=== PATIENT | female | born 1950 | race African-American/Black ===

== ENCOUNTER 2016-05-05 18:04 | Day surgery (SDC) | payer BC ==
--- NOTE | ~2016-05-05 | OP ---
Record Of Operation [facility] [address] [place]. [address] NAME: WU LEROY : 48 STATUS : [facility]#: [id number] AGE: 66 ADM/REG DATE : 05/05/16 MR#: [id number] REPORT SERV DATE: 05/09/16 DICTATED BY: JT GALLEGO DATE: 05/09/16 REPORT STATUS : Draft TRANSCRIBED BY: MODKyaw DATE: 05/09/16 DATE OF PROCEDURE: 05/05/2016 PREOPERATIVE DIAGNOSES: 1. End-stage renal disease. 2. Thrombosed left upper extremity arteriovenous fistula. POSTOPERATIVE DIAGNOSES: 1. End-stage renal disease. 2. Thrombosed left upper extremity arteriovenous fistula. PROCEDURE: 1. Open thrombectomy left upper extremity arteriovenous fistula. 2. AV fistulogram. 3. Open angioplasty of the venous outflow. 4. Revision of the arteriovenous anastomoses with patch angioplasty. SURGEON: Jt Gallego M.D. ELECTRICAL PROSPECTOR: Lonnie. ANESTHESIA: Local with MAC. ESTIMATED BLOOD LOSS: 200 mL. COMPLICATIONS: None. SPECIMEN: Thrombus. INDICATION: Ms. Leroy is a pleasant 66-year-old female with end-stage renal disease on hemodialysis. She dialyzes through a left upper extremity brachiobasilic arteriovenous fistula. This is occluded. She is brought for thrombectomy and intervention as needed. DETAILS OF PROCEDURE: After informed consent was obtained, the patient brought to the endovascular suite, placed in supine position. After administration of IV sedation, she was prepped and draped in the usual sterile fashion. A time-out was performed. I commenced the procedure with ultrasound examination of the fistula. It is indeed thrombosed. Identified the arteriovenous anastomoses. I anesthetized the skin just cephalad to that, and made an incision and dissected down through subcutaneous tissues with cautery. I exposed the fistula, cephalad the anastomosis. It was encircled with vessel loops proximally and distally. We administered 2000 units of IV heparin. I performed a transverse fistulotomy. I passed a 4 Alexa distally and extracted copious amounts of fresh thrombus. I then placed a 7-Bulgarian sheath and then performed contrast injection. This shows high-grade stenosis in the basilic vein in the proximal upper arm. The axillary vein is patent. 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 It was difficult to see contrast opacification beyond that. After that, I placed a Bentson wire and a bur 2. With Record Of Operation [facility] [address] [place]. [address] NAME: WU LEROY : 48 STATUS : [facility] PAT#: [id number] AGE: 66 ADM/REG DATE : 05/05/16 MR#: [id number] REPORT SERV DATE: 05/09/16 DICTATED BY: JT GALLEGO DATE: 05/09/16 REPORT STATUS : Draft TRANSCRIBED BY: MODL DATE: 05/09/16 this combination, I was able to cross through the occluded left subclavian vein. I advanced the catheter in the left brachiocephalic vein and performed contrast injection, which shows the brachiocephalic vein to be widely patent with no stenosis. Superior vena cava was also patent with no stenosis. After that, we ballooned the left subclavian vein occlusion with a 14 x 40 balloon. Repeat contrast injection shows the vein now to be widely patent with no significant residual stenosis. I then used a 10 balloon on the basilic vein in the upper arm. This resolved that stenosis. After that, I attempted to perform a Alexa thrombectomy of the arterial side. However, I could never pass the Alexa through the arteriovenous anastomoses. Ultimately, I had to use a Glidewire and a yamini 2 to advance to the anastomosis intraluminally. I then used over the wire Alexa to performed Alexa thrombectomy. This resulted in incomplete thrombectomy. There was still thrombus at the anastomosis. I then repeated over the wire thrombectomy. The vein just cephalad to the anastomosis is tortuous with moderate stenosis. Balloon angioplasty did not resolve the stenosis. I removed the sheath and was not satisfied with the arterial inflow. As a result, I extended my incision in the fistula. I performed a patch angioplasty basically at the anastomosis and extending about a centimeter and half cephalad to the arteriovenous anastomoses. The patch was sewn in place with running 6-0 Prolene. Prior to completing the suture line, I flushed and restored flow to the fistula first and then to the arm distally. This resulted in return of the thrill to the fistula. There is palpable radial pulse at the wrist with good Doppler signals in the radial and ulnar arteries. After that, we ensured hemostasis. We irrigated with sterile saline. Wound was closed in layers with 3-0 Vicryl for the deep layer with running 4 Monocryl in a subcuticular fashion for the skin. Dermabond was applied. The patient tolerated the procedure well without complications. I was present for this entire case as dictated. GLADIS/SALUD Jt Gallego M.D. / [id number] CC: Roderick Sullivan M.D.
[~2016-05-05 18:04] MED LIST: BUM1 PO; C1 PO; HCTZ50B PO; HEMOCYTET PO; HUMULIN SC; LANTUS SC; LOP50 PO; NORV10 PO; PROPYLTHIOUR50 MG PO; SPIRO25 PO; TAZTIA X3 PO; [UNRECOGNIZED DRUG - OTHER] PO
[2016-05-05] MEDS ORDERED: APRES10B PO (18:28)
[2016-05-05] MEDS ORDERED: ZESTRIL30 MG PO (18:29)
[2016-05-05] MEDS ORDERED: INSNOV7030 (18:33)
[2016-05-05 19:19] LABS: BASOPHILS 0.1 %; BASOPHILS ABSOLUTE 0.02 10/3/uL (0.0-0.16); EOSINOPHILS 11.2 %; EOSINOPHILS ABSOLUTE 1.53 10/3/uL (0.0-0.53); HEMATOCRIT 34.8 % (36.0-48.0); HEMOGLOBIN 11.6 g/dL (12.0-16.0); IMMATURE GRANULOCYTES 0.2 %; IMMATURE GRANULOCYTES ABSOLUTE 0.03 10/3/uL (0.0-0.11); LYMPHOCYTES 25.1 %; LYMPHOCYTES ABSOLUTE 3.42 10/3/uL (0.67-4.30); MEAN CORPUS HGB CONC 33.3 g/dL (32.0-36.0); MEAN PLATELET VOLUME 9.2 fL (9.2-13.0); MONOCYTES 5.9 %; MONOCYTES ABSOLUTE 0.81 10/3/uL (0.21-1.20); NEUTROPHILS 57.5 %; NEUTROPHILS ABSOLUTE 7.84 10/3/uL (2.02-8.40); PLATELET COUNT 346 10/3/uL (150-400); RED CELL COUNT 3.58 10/6/uL (4.0-5.6); WHITE BLOOD CELLS 13.7 10/3/uL (4.5-10.5)
[2016-05-05 19:23] LABS: MANUAL DIFF NO %; MEAN CORPUSCULAR HEMOGLOB 32.4 pg (26.0-34.0); MEAN CORPUSCULAR VOLUME 97.2 fL (80-100); RBC DISTRIBUTION WIDTH 14.6 % (12.0-16.0)
[2016-05-05 19:30] LABS: CALCIUM, SERUM 8.7 MG/DL (8.5-10.4); CHLORIDE, SERUM 99 MMOL/L (96-112); CO2 (CARBON DIOXIDE) 23 MMOL/L (24-34); POTASSIUM, SERUM 4.6 MMOL/L (3.5-5.3); SODIUM, SERUM 137 MMOL/L (135-148)
[2016-05-05 19:32] LABS: BUN (BLOOD UREA NITROGEN) 76 MG/DL (6-23); GFR AFRICAN AMERICAN 4 ML/MIN (>=60); GFR NON AFRICAN AMERICAN 3 ML/MIN (>=60); GLUCOSE, SERUM 137 MG/DL (60-99)
== END 2016-05-05 23:59 | disposition home or self-care (01) ==
LOC: SDC 18:04
PROVIDERS: Surgery
PROC: 05763ZZ Dilation of Left Subclavian Vein, Percutaneous Approach (ICD-10-PCS; principal; 2016-05-05 21:30)
PROC: 05CC3ZZ Extirpation of Matter from Left Basilic Vein, Percutaneous Approach (ICD-10-PCS; 2016-05-05 21:30)
DX: T82.868A Thrombosis due to vascular prosthetic devices, implants and grafts, initial encounter (principal); E11.22 Type 2 diabetes mellitus with diabetic chronic kidney disease; I12.0 Hypertensive chronic kidney disease with stage 5 chronic kidney disease or end stage renal disease; E11.40 Type 2 diabetes mellitus with diabetic neuropathy, unspecified; N18.6 End stage renal disease; K21.9 Gastro-esophageal reflux disease without esophagitis; E03.9 Hypothyroidism, unspecified; Z79.4 Long term (current) use of insulin; Z79.899 Other long term (current) drug therapy
CPT/HCPCS: 36833; 36907; 80048; 82962; 85025; 88304; 93005; C1725; C1757; C1768; C1769; C1894; J0690; J2250; J2370; J3010; Q9967